=== PATIENT | male | born 1975 | race Caucasian/White ===

== ENCOUNTER 2024-03-18 10:47 | Emergency (ER) | payer OTHER, SELFPAY ==
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
--- NOTE | ~2024-03-18 | XR_ITS ---
EXAMINATION: XR knee LT min 4V DATE: 03/18/2024 11:35 INDICATION: Medial left knee pain radiating down the leg TECHNIQUE: Anteroposterior, 2 oblique and crosstable lateral views of the affected knee were obtained COMPARISON: None. FINDINGS: Alignment is normal. No fracture. Joint spaces appear normal on nonweightbearing imaging. No joint e ffusion/layering lipohemarthrosis. Prepatellar soft tissue swelling. IMPRESSION: 1. No left knee joint effusion or osseous abnormality. Reviewed, dictated and finalized at location A.
[2024-03-18 11:00] VITALS: BP 143/97; PULSE 72; RESP 18; TEMP 36.6; O2SAT 99
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
== END 2024-03-18 12:03 | disposition home or self-care (01) ==
PROVIDERS: Emergency Provider Nurse Practitioner Family
DX: S80.02XA Contusion of left knee, initial encounter (principal); V43.52XA Car driver injured in collision with other type car in traffic accident, initial encounter; R07.81 Pleurodynia
CPT/HCPCS: 71101; 73564; 99214; G0463